=== PATIENT | male | born 1930 | race Caucasian/White ===

== ENCOUNTER 2019-07-04 09:03 | Inpatient (IN) | payer OTHER ==
[~2019-07-04] VITALS: Ht 172.7 cm; Wt 82.6 kg
[2019-07-04 09:12] VITALS: Ht 172.7 cm; Wt 82.6 kg
--- NOTE | 2019-07-04 09:20 | NUR ---
BROUGHT IN BY AMBULANCE AWAKE ALERT ORIENTED, FELT DIZZY AND FELL DOWN SUSTAINED SKIN TEAR TO LT ELBOW,NO KO ,
[2019-07-04 09:38] LABS: BASOPHIL % 0.3 % (0-2); PLATELET COUNT 185 x10^3mcL (130-400); RED CELL DISTRIBUTION WIDTH 13.1 % (11.5-14.5)
[2019-07-04 09:52] LABS: CALCIUM 8.4 mg/dL (8.5-10.1); CARBON DIOXIDE 31.2 mmol/L (21-32); CHLORIDE SERUM 103 mmol/L (98-107); CREATININE SERUM 1.1 mg/dL (0.7-1.3); GLUCOSE SERUM 122 mg/dL (74-106); POTASSIUM SERUM 4.7 mmol/L (3.5-5.1); SODIUM SERUM 139 mmol/L (136-145)
[2019-07-04 09:56] LABS: ALBUMIN 3.6 g/dL (3.4-5.0); ALKALINE PHOSPHATASE 75 U/L (46-116); ALT/SGPT 32 U/L (16-63); AST/SGOT 25 U/L (15-37); BILIRUBIN TOTAL 0.8 mg/dL (0.20-1.00); TOTAL PROTEIN, SERUM 7.1 g/dL (6.4-8.2)
--- NOTE | 2019-07-04 11:30 | NUR ---
PT TO CT VIA ABDULLAHI IN NO ACUTE DISTRESS. TALKING APPROPRIATLEY
--- NOTE | 2019-07-04 11:46 | NUR ---
PT GIVEN URINAL HOWEVER PT STATES HE CANNOT GO AFTERALL. INSTRUCTED TO USE URINAL AND HOW TO USE AT BEDSIDE. INSTRUCTED NOT TO STAND. BECAME DIZZY JUST MOVING HIM TO SIT UP TO USE URINAL. PT VERBALIZED WILL NOT STAND. CALL LIGHT WITH IN REACH AND FAMILY AT BEDSIDE
--- NOTE | 2019-07-04 13:02 | NUR ---
PT ATE ALL HIS FOOD 100% FAMILY AT BEDSIDE PT AND FAMILY AWARE OF ADMISSION AND AGREES
--- NOTE | 2019-07-04 14:09 | NUR ---
GAVE REPORT TO SUZANNE DUNCAN TO RESUME CARE OF PT
--- NOTE | 2019-07-04 14:34 | NUR ---
RECEIVED PT VIA GURNEY FROM E/D, ACCOMPANIED BY RN, TRANSPORTER, AND PT'S , MICHELLE, AND DAUGHTER, INESSA. PT A/A/O X 3 (PERSON, PLACE, PURPOSE; WHEN ASKED WHAT YEAR IT IS, STATED THAT IT IS "1966"); PT IS SOMALI SPEAKING THAT UNDERSTANDS [place]; DAUGHTER HELPED W/ TRANSLATION; PT IS CALM, COOPERATIVE TO CARE AT THIS TIME. PT W/ GENERALIZED WEAKNESS, AMB W/ CANE/WALKER @ HOME W/ SHUFFLING GAIT; PT HAD MULTIPLE FALLS W/IN LAST 3 MONTHS, W/ LAST EPISODE 07/03/19, WHERE HE SUSTAINED A L ELBOW LAC; PT CAME IN W/ WOUND ALREADY DRESSED W/ DRY DRESSING AND WRAPPED W/ COBAND; UNABLE TO VISUALLY INSPECT WOUND OR TAKE PHOTO. 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 SCD BY BEDSIDE. NO ACUTE RESPIRATORY DISTRESS NOTED. DAUGHTER STATED THAT PT HAS LOW PO INTAKE > 3 DAYS, LOST > 10# X 1 MO, AND EPISODES OF FOOD STICKING IN THROAT; ASPIRATION PRECAUTIONS IN PLACE. PT W/ C/O BURNING ON URINATION; CLEAR YELLOW URINE NOTED BY PATIENT. IV SITE RFA 18G, CDI. ORIENTED PT AND FAMILY MEMBERS TO ROOM, BED CONTROLS, CALL LIGHT SYSTEM. SIDE RAILS UP X 2, BED IN LOW POSITION. WILL ENDORSE TO [place] [facility].
[2019-07-04] MEDS ORDERED: AMA1 PO (14:46)
[2019-07-04] MEDS ORDERED: FUROSEMIDE40 MG PO (14:47)
[2019-07-04] MEDS ORDERED: ENALAPRIL MALEAT5 MG PO (14:48)
--- NOTE | 2019-07-04 15:00 | NUR ---
C/O THIRSTY. DRANK 750 CC OF WATER.
[2019-07-04 15:32] VITALS: BP 113/49
--- NOTE | 2019-07-04 16:00 | NUR ---
VASOTEC AND LASIX HOLD DUE TO PATIENT'S B/P = 113/49. MAP = 66.
--- NOTE | 2019-07-04 18:49 | NUR ---
TOLERATED DIET. VOID 3X URINAL, EST 750CC OF URINE NOTED. DENIED PAIN. DENIED DIZZINESS NOW. ENDORSED CARE TO [facility] NURSE.
--- NOTE | 2019-07-04 19:10 | NUR ---
RECEIVED REPORT BY BEDSIDE; PT A/A/O X 3 (PERSON, PLACE, PURPOSE), CALM, COOPERATIVE. 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 SCD BY BEDSIDE. NO ACUTE RESPIRATORY DISTRESS NOTED. PT REMAINS ON ASPIRATION PRECAUTIONS 2/2 EPISODES OF FOOD STICKING IN THROAT. C/O DYSURIA (BURNING ON URINATION). PT W/ GENERALIZED WEAKNESS BUT ABLE TO AMB W/ SLOW, SHUFFLING GAIT; R-SIDED DEFICITS NOTED. L ELBOW LACERATION DRESSING (GAUZE/COBAND) RAMAINS CDI, DENIES PAIN OR DISCOMFORT TO SITE. IV SITE RFA 18G CDI, SL. SIDE RAILS UP X 2, BED IN LOW POSITION, CALL LIGHT WITHIN REACH. WILL CONTINUE TO MONITOR.
--- NOTE | 2019-07-04 20:21 | NUR ---
PT BS 183; PT REFUSED COVERAGE; EXPLAINED R/B; PT VERBALIZED UNDERSTANDING. WILL CONTINUE TO MONITOR.
--- NOTE | 2019-07-04 21:12 | NUR ---
PT STATED THAT HE NEEDED "SOMETHING FOR SLEEP"; PT GIVEN AMBIEN 5MG PO; HELPED REPOSIITON PT, TURNED OFF LIGHT FOR COMFORT. WILL CONTINUE TO MONITOR.
[2019-07-04 21:58] VITALS: BP 103/65
--- NOTE | 2019-07-05 01:39 | NUR ---
PT IN BED, RESTING COMFORTABLY. NO ACUTE RESPIRATORY DISTRESS, PAIN, OR DISCOMFORT NOTED. SIDE RAILS UP X 2, BED IN LOW POSITION, CALL LIGHT WITHIN REACH. WILL CONTINUE TO MONITOR.
[2019-07-05 05:49] VITALS: BP 114/64
--- NOTE | 2019-07-05 06:29 | NUR ---
PT IN BED, CALLING FOR HELP TO URINATE IN THE RESTROOM; PT WAS ASSISTED, NOTED SLOW SHUFFLING GAIT. PT STATED THAT HE STILL FEELS BURNING UPON URINATION; ASSISTED BACK TO BED AFTERWARDS, AND REPOSITIONED FOR COMFORT. NO ACUTE RESPIRATORY DISTRESS, PAIN, OR DISCOMFORT NOTED. SIDE RAILS UP X 2, BED IN LOW POSITION. WILL ENDORSE TO MORNING SHIFT.
[2019-07-05 06:47] LABS: BASOPHIL % 0.5 % (0-2); PLATELET COUNT 172 x10^3mcL (130-400); RED CELL DISTRIBUTION WIDTH 13.3 % (11.5-14.5)
[2019-07-05 07:09] LABS: T4(THYROXINE) 5.8 ug/dL (4.7-13.3)
--- NOTE | 2019-07-05 08:00 | NUR ---
SHIFT ASSESSMENT DONE. PATIENT A/A/OX3. FORGETFULNESS. DENIED DIZZINESS NOW. EEK RENETTA. 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 HR = 80; DENIED CHEST PAIN. NO RESP DISTRESS ON RA. TOLERATED CCHO DIET BREAKFAST. AMBULATORY, BUT NEED ASSIST. IVHL'D TO RFA. SKIN LACERATION TO L ELBOW W/ DRSG INTACT. DENIED PAIN. CALL LIGHT IN REACH.
[2019-07-05 08:41] VITALS: BP 132/59
[2019-07-05 08:59] LABS: ERYTHROCYTE SED RATE 30 mm/hr (0-20)
--- NOTE | 2019-07-05 09:20 | NUR ---
DR. BORGES CAME TO SEE PATIENT. ORDER OF PT EVAL WRITTEN.
[2019-07-05 12:53] VITALS: BP 110/60
--- NOTE | 2019-07-05 13:00 | NUR ---
SKIN TEAR AND LACRATION TO L ELBOW, 2CM X 7 CM. NO ACTIVE BLEEDING NOW. WOUND DRY. CARE GIVEN. VELSATEL APPLIED. PHOTO TAKEN AND FILED. DR. BORGES AWARE OF.
[2019-07-05 13:30] VITALS: BP 110/60
--- NOTE | 2019-07-05 15:50 | NUR ---
D/C TO HOME WITH HOME HEALTH CARE PER ORDER. INSTRUCTION GIVEN TO PATIENT AND HIS SON. IV D/C'D. OVER NEEDLE CATH INTACT. CONDITION STABLE.
[2019-07-06 05:08] LABS: RAPID PLASMA REAGIN Non Reactive (Non Reactive)
[2019-07-06 09:08] LABS: RHEUMATOID ARTHRITIS FACTOR <10.0 IU/mL (0.0-13.9)
== END 2019-07-05 15:54 | disposition home health service (06) | DRG 605 ==
LOC: ED 09:03 → DU 12:14
PROVIDERS: Emergency Medicine; ADMIT Internal Medicine
DX: S50.312A Abrasion of left elbow, initial encounter (principal); R55 Syncope and collapse; E11.9 Type 2 diabetes mellitus without complications; I10 Essential (primary) hypertension; Z79.4 Long term (current) use of insulin; Z68.27 Body mass index [BMI] 27.0-27.9, adult; W18.39XA Other fall on same level, initial encounter; Y92.018 Other place in single-family (private) house as the place of occurrence of the external cause
CPT/HCPCS: 82962; 86431; G0378; Q0092